=== PATIENT | female | born 2005 | race Caucasian/White ===

== ENCOUNTER 2024-02-08 15:07 | Outpatient (OUT) | payer OTHER, SELFPAY ==
--- NOTE | 2024-02-08 15:21 | XR_ITS ---
The [address] [address] Patient Name: VIRGILIO REDDY MRN: [id number] date: 2005 Sex: F Assigned Patient Location: [facility] Current Patient Location: [facility] Accession/Order Number: [id number] Exam Date: 02/08/2024 15:28 Report Date: 02/08/2024 15:43 At the request of: TERA HERNANDEZ Procedure: XR shoulder RT min 2V PROCEDURE: XR shoulder RT min 2V HISTORY: Right Shoulder Pain, Limited Range Of Motion ; recent fall COMPARISON: None. FINDINGS: BONES:No fracture, acute abnormality, or significant arthropathy. SOFT TISSUES:No visible soft tissue swelling. EFFUSION:None visible. OTHER: Negative. XR/XR shoulder RT min 2V IMPRESSION: 1. Normal examination. Electronically authenticated by: SALLY BUSBY Date: 02/08/2024 15:43
== END 2024-02-08 15:08 | disposition home or self-care (01) ==
PROVIDERS: Visit Provider Nurse Practitioner Family
DX: M25.511 Pain in right shoulder (principal)
CPT/HCPCS: 73030

== ENCOUNTER 2024-03-05 08:19 | Outpatient (OUT) | payer OTHER, SELFPAY ==
--- NOTE | 2024-03-05 08:21 | MR_ITS ---
The [address] [address] Patient Name: VIRGILIO REDDY MRN: [id number] date: 2005 Sex: F Assigned Patient Location: MRI Current Patient Location: MRI Accession/Order Number: [id number] Exam Date: 03/05/2024 08:47 Report Date: 03/05/2024 14:53 At the request of: TERA HERNANDEZ Procedure: MR shoulder RT wo con EXAM: MR shoulder RT wo con HISTORY: Right Shoulder Injury, Right Shoulder Pain COMPARISON: 02/08/2024 TECHNIQUE: MRI images obtained with multiple sequences. MRI of the right shoulder without contrast. Sequences obtained by standard department protocol. FINDINGS: Normal alignment of the acromioclavicular joint. Undersurface of the acromion process is gently curved. Subacromial subdeltoid bursal fluid, consistent with bursitis. Rotator cuff is intact. No full-thickness rotator cuff tear. Supraspinatus, infraspinatus, teres minor and subscapularis tendons are intact. Muscle bulk of the rotator cuff is preserved. No labral detachment. No full-thickness chondral loss of the glenohumeral joint. No acute fractures. No right axillary adenopathy. MR/MR shoulder RT wo con IMPRESSION: 1. No full-thickness rotator cuff tear. Rotator cuff is intact. 2. Subacromial subdeltoid bursal fluid, consistent with bursitis. 3. No right axillary adenopathy. Electronically authenticated by: CARLOS ENRIQUE LAI Date: 03/05/2024 14:53
--- OUTSIDE RECORDS SUMMARY | 2024-03-05 08:32 | XMS_ITS | CCD ---
Author Organization [facility] Care Team Providers Care Manager Systems Name Role Phone ANABELA, SHANTHI Attending Unavailable ANABELA, SHANTHI Admitting Unavailable ANABELA, SHANTHI Attending Unavailable ANABELA, SHANTHI Attending Unavailable ANABELA, SHANTHI Attending Unavailable ANABELA, SHANTHI Attending Unavailable Urgent [facility] Attending Unavailable Britta EVANS MD, [facility] Kyara vailable Britta EVANS MD, [facility] Kyara vailable Guy SCIENTIFIC RECRUITER[employer]WIDE [employer] NETWORK ADMINISTRATOR, Shanna George Attending Unava ilable Allergies Allergy Classification Reported Allergen(s) Allergy Type Date of Onset Reaction(s) Facility (1 source) No Known Medication Allergies; Translations: [No Known Medication Allergies] Propensity to adverse reactions to drug (disorder) [facility] Repository Problems Problem Classification Problem Date Documented Date Episodic/Chronic Other non-traumatic joint disorders (2 sources) Other instability, left shoulder; Translations: [Other instability, left shoulder] Onset: 01-25-2023 Episodic Residual codes; unclassified (2 sources) Other specified postprocedural states; Translations: [Other specified postprocedural states] Onset: 03-09-2023 Episodic Results Test Name Value Interpretation Reference Range [facility] Urgent Care Office/Clinic No glaileo 11-27-2023 Urgent Care Office/Clinic Note History of Present Illness 18 year old female presents to the urgent care today for abdominal pain. Patient with known history of ovarian cysts which were diagnosed 2 years ago. Denies any F/U with BUILDING OFFICIAL. States that symptoms today are similar to what she experienced 2 years ago. rates pain 5/10. Has not used any OTC pain medication. Also with long standing history of constipation. States that she did have a colonoscopy scheduled in the past, but had to cancel due to unforeseen circumstances. States that last bowel movement was 3-4 days ago. Denies any fever, chest pain. SOB, vomiting or changes in menstrual cycle or urinary symptoms. Complains of nausea after she eats. Review of Systems ROS: General: No fever, chills, body aches or fatigue. No unexplained weight loss or change in appetite. Cardiovascular: No chest pain, palpitations, or syncope. Pulmonary: No shortness of breath, wheezing, cough. GI: No nausea, vomiting or diarrhea. No abdominal pain. : No dysuria, hematuria, incontinence, frequency or urgency. Skin: Denies rashes or other acute changes. Physical Exam General: Well-developed, in no acute distress. Neuro: Alert and oriented. CV: Regular rate and rhythm. No murmurs, gallops, or rubs. No carotid bruit bilaterally. No lower extremity edema. Lungs: Clear to auscultation bilaterally. No wheezes, crackles, or rhonchi. Good air exchange bilaterally. Abdomen: Non-distended. Bowel sounds heard in all 4 quadrants. Soft, non-tender palpation. No organomegaly or masses noted. No guarding. No CVA tenderness. Skin: Warm, dry, intact. No rashes, lesions, or open wounds. Additional Vitals No qualifying data available. Assessment/Plan 1. Ovarian cyst Tylenol/Motrin OTC as needed for pain F/U with [facility]ILDING [facility] Ordered: Discharge Patient 2. Constipation in female Drink at least 8 glasses of non-caffeinated nonalcoholic beverages per day. Follow diet as instructed, written handout given. Recommend taking over the counter MiraLax - Follow dosing instructions on package, take with large glass of water at bedtime daily until having daily bowel movements, then decrease to every other day, every 3rd day, to once a week. Then take as needed to keep bowels regular. May take over the counter Colace 100 mg twice a day to soften stools. May decrease to once daily or as needed when bowels are moving daily and are softly formed. Follow-up with PCP in 3-5 days if no improvement. Go to the emergency department if symptoms become worse or for any concern deemed emergent. Ordered: Discharge Patient Medical Decision Making Chronic conditions NOT treated during this visit that affected my overall medical decision making: [] Treatment plans discussed but not opted for at this time: [] Prescribed medication that requires intensive monitoring for toxicity: [] I have reviewed the patient?s medication list for medication interactions/contrain dications and/or for upcoming procedures: [yes] Time Spent with the Patient I have personally spent [21] minutes on this date, directly related to today's patient visit, including pre and post visit work, for this date of service. Time listed does not include time spent on separately billable services. Physician Comments Assessment and plan reviewed with patient and agrees with treatment plan. Problem List/Past Medical History Ongoing No chronic problems Historical No qualifying data Procedure/Surgical History REMOVAL OF TONSILS Medications No active medications Allergies No Known Allergies No Known Medication Allergies Social History Tobacco Never (less than 100 in lifetime) Use:. Family History Family history is negative Electronically signed by Guy CANO Shanna George 11/27/23 17:35 EDT Normal [facility] Urgent Care Office/Clinic No galileo 09-17-2023 Urgent Care Office/Clinic Note Chief Complaint pt states she has had a cough that has lead to cheset tightness for one week, has started tasting blood in cough. History of Present Illness Patient is 18-year-old female here with her mother for evaluation of dry cough and chest pain. Patient reports she has had a cough for 1 week. She denies fever, body aches, or chills. She reports chest pain has been constant and will occasionally worsen. She is able to identify a specific aggravating factor besides coughing will be 1 factor that makes it worse. She has not taken medication for pain. She is currently taking DayQuil and NyQuil for her cough. She denies shortness of breath or wheezing. She denies GI symptoms, nasal congestion, rhinorrhea, ear pain, throat pain, headache. She denies any known sick contacts. Review of Systems See HPI Physical Exam Vitals & Measurements T: 36.7 ?C (Oral) HR: 70 (Peripheral) RR: 16 BP: 118/78 SpO2: 98 HT: 165 cm WT: 60 kg WT: 60 kg (Dosing) BMI: 22.04 General: Well-developed, in no acute distress. Neuro: Alert and oriented. Gait is steady. Speech is clear and appropriate. Eyes: PERRL. Conjunctiva clear without erythema or drainage. Nose: Bilateral nares patent with thick green rhinorrhea and right nares. Ears: Canals visualized without any erythema, edema, or discharge. TM's visible and intact, pearly hall. Good light reflex. Pharynx: Posterior oropharynx moist, pink without erythema, edema, or exudate. Mucous membranes moist. Sinuses: No tenderness to palpation of the frontal and maxillary sinuses. Neck: Trachea midline. No lymphadenopathy. CV: Regular rate and rhythm. No murmurs, gallops, or rubs. Lungs: Clear to auscultation bilaterally. No wheezes, crackles, or rhonchi. Good air exchange bilaterally. Additional Vitals BP Position/Location: Sitting Assessment/Plan 1. Viral URI with cough Take Tessalon Perles as prescribed. Recommend using ibuprofen 600 to 800 mg every 6-8 hours consistently for costochondritis pain. May alternate Tylenol. Increase fluid intake. Recommend using warm fluids with honey to help soothe the cough. Use cool-mist humidifier by bed at night to decrease any nasal congestion and moisturize nasal passages and throat. Follow-up with family doctor in the next lab to 7 days if no improvement in symptoms. Go to the ER for new or worsening symptoms. Ordered: benzonatate, 1 caps, Oral, TID, PRN, X 7 days, # 21 caps, 0 Refill(s), 09/24/23 13:31:00 EDT, Pharmacy: [id number] 2. Costochondritis See #1 Ordered: benzonatate, 1 caps, Oral, TID, PRN, X 7 days, # 21 caps, 0 Refill(s), 09/24/23 13:31:00 EDT, Pharmacy: [id number] Medical Decision Making Patient is well and nontoxic-appearing upon evaluation. Vital signs are stable. Reviewed assessment and plan of care with patient. Patient verbalized understanding and agreed with plan. No further questions or concerns upon discharge. Chronic conditions NOT treated during this visit that affected my overall medical decision making: [] Treatment plans discussed but not opted for at this time: [] Prescribed medication that requires intensive monitoring for toxicity: [] I have reviewed the patient?s medication list for medication interactions/contrain dications and/or for upcoming procedures: [yes or no] Time Spent with the Patient I have personally spent [15] minutes on this date, directly related to today's patient visit, including pre and post visit work, for this date of service. Time listed does not include time spent on separately billable services. Problem List/Past Medical History Ongoing No chronic problems Historical No qualifying data Procedure/Surgical History REMOVAL OF TONSILS Medications benzonatate 100 mg oral capsule, 100 mg= 1 caps, Oral, TID, PRN Allergies No Known Allergies No Known Medication Allergies Social History Tobacco Never (less than 100 in lifetime) Use:. Family History Family history is negative Electronically signed by Starla Roy 09/17/23 13:35 EDT [facility] Office Visiton 05-29-2023 Follow-up visit [id number] Zeynep Avery 2005 F Date Provider Department [place] 05/29/2023 SHANTHI MORFIN MP No family history on file Level of Service:62304 NE POSTOP FOLLOW UP VISIT RELATED TO ORIGINAL PX Reason for Visit and Comments: Pain [136] Follow-up [176572] [facility] 36on 05-04-2023 36 Physical therapist wants to know is theres any protocol they need to follow? If not a verbal is fine to call back the Theraspist. If theres any restrictions/protocol the Would like them to follow please fax a form to fax numer [phone] dina Sharp Normal [facility] Follow-Upon 04-17-2023 Follow-Up [id number] Zeynep Avery 2005 F Date Provider Department [place] 04/17/2023 SHANTHI MORFIN MP No family history on file Level of Service:39605 NE POSTOP FOLLOW UP VISIT RELATED TO ORIGINAL PX Reason for Visit and Comments: Pain [136] [facility] Office Visiton 03-20-2023 Follow-up visit [id number] Zeynep Avery 2005 F [facility] Provider Department [place] 03/20/2023 SHANTHI MORFIN MP ORTHO MPORTHO No family history on file Level of Service:69250 NE POSTOP FOLLOW UP VISIT RELATED TO ORIGINAL PX Reason for Visit and Comments: Pain [136] - 1st PO Post-op [483] - 1st PO Normal [facility] OPNOTEon 03-09-2023 OPNOTE SHOULDER ARTHROSCOPY WITH REVISION OF BANKART REPAIR (L), CAPSULORRHAPHY, WITH REMOVAL OF DEEP SUTURE (L) Operative Note Date: 03/09/2023 Location: [facility] OR Name: Zeynep Avery, : 2005, Diagnosis Pre-op Diagnosis * 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 GRYPHON P BR ANCHOR W/ DYNACORD Explanted Mcgrath DYNACORD,GRYPHON,BLUE - [id number] Explanted Mcgrath ANCHOR,DUAL STRAND,LUPINE - [id number] Implanted Staff: Laboratory Administrative Director: Violet Merritt RN Scrub Person: Dyan Berg, MEMORANDUM STATEMENT CLERK Indications: Zeynep Avery is an 17 y.o. 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 Procedure Details: The patient was seen in the preoperative area. The risks, benefits, complications, treatment options, non-operative alternatives, expected recovery and outcomes were discussed with the patient. The possibilities of reaction to medication, pulmonary aspiration, injury to surrounding structures, bleeding, recurrent infection, the need for additional procedures, failure to diagnose a condition, and creating a complication requiring transfusion or operation were discussed with the patient. The patient concurred with the proposed plan, giving informed consent. The site of surgery was properly noted/marked if necessary per policy. The patient has been actively warmed in preoperative area. Preoperative antibiotics have been ordered and given within 1 hours of incision. Venous thrombosis prophylaxis have been ordered including bilateral sequential compression devices Findings: After confirmation and marking of the left shoulder in the preoperative holding area, the patient was brought back to the operating suite and placed in the supine position. All pressure points were adequately padded. General endotracheal anesthesia was smoothly induced. Preoperative antibiotics were administered. After observation of the surgical timeout procedure using 2 separate patient identifiers, we began with the case. We first preemptively anesthetized the proposed incisions with 3 cc 1% lidocaine with epinephrine. We then created our standard arthroscopy portals began with a diagnostic arthroscopy. We first inspected the glenohumeral joint. The superior labrum was intact. Long head of biceps tendon was intact. Rotator cuff was intact. There was however a failed Bankart repair with disruption of the capsulolabral complex. Articular cartilage was not intact. There was a 4mm cavitary defect of the anteroinferior glenoid where the previous anchor had pulled out. The anterior labrum was not intact. The posterior labrum was intact, but there was inflammation around the suture knots here. We removed the synovitis and suture knots. We first tried to repair the failed Bankart using Billy anchors above and below the cavitary defect. However, they could not gain purchase due to the compromised bone. We then instead used a larger Lupine anchor into the defect site where it gained good purchase. This was double loaded with Orthocord, which was passed around the torn labrum and into the torn capsule. When tied down, this effected both a Bankart repair and a capsulorrhaphy. At this point all instruments were removed and the shoulder was drained of fluid. The portal incisions were closed using simple nylon sutures. A sterile dry dressing was applied. A Polar Care unit was applied for postoperative pain control. A sling with abduction pillow was applied as well. Patient was then awaken extubated and brought back to the PACU in stable condition I was present scrubbed and actively participated in all osuna portions of the surgery Complications: None; patient tolerated the procedure well. Disposition: PACU - hemodynamically stable. Condition: stable Shanthi Newton Normal [facility] POCT GLUCOSE METER UNSOLICIT ED RESULTSon 03-09-2023 Glucose [Mass/Vol] 92 mg/dL Normal 70-105 [facility] Comment on above: Order Comment: Waive d Testing in the ED is performed under the ED CLIA certificate #[id number]. Result Comment: aaron ng12 Performed By: #### L [id number] ####[facility] (JANUSZ)[address] [place] [address] HPon 03-08-2023 HP History Of Present Illness Zeynep Avery is a 17 y.o. female presenting with L shoulder instability. Past Medical History She has a past medical history of Adverse effect of anesthesia, Constipation, and Instability of left shoulder joint. Surgical History She has a past surgical history that includes Shoulder surgery and Tonsillectomy. Social History She reports that she has never smoked. She has never used smokeless tobacco. She reports that she does not currently use alcohol. She reports that she does not currently use drugs. Family History No family history on file. Allergies Patient has no known allergies. Medications No medications prior to admission. Review of Systems Last Recorded Vitals Visit Vitals Smoking Status Never Physical Exam Relevant Lab Results No results found for: NA, K, CL, CO2, BUN, CREATININE, GLUCOSE, CALCIUM, ANIONGAP, EGFR, BCR L shoulder instability Relevant Imaging Results No image results found. Assessment/Plan Principal Problem: Instability of left shoulder joint L shoulder capsulorrhaphy Normal [facility] [id number] 03-02-2023 [id number] Nothing to Eat or Drink, including Candy, Gum, Mints, and Tobacco after Midnight the night before surgery. Take LINZESS with a sip of water the day of surgery. Hold Vitamins, Supplements, and NSAIDS for 1 week prior to surgery. Hold all other meds the morning of surgery. IF YOU ARE GOING HOME AFTER YOUR SURGERY OR PROCEDURE, FOR YOUR SAFETY, YOUR SURGERY WILL BE CANCELLED IF BOTH OF THE FOLLOWING ARE NOT AVAILABLE: An adult sales driver over the age of 18, that can receive information about your care after surgery, and drive you home. A responsible adult to stay with you for 24 hours in case of an emergency. Can be same as above. The highest risk of complications is within the first 24 hours after sedation/anesthesia. Nothing to eat or drink after midnight the night before surgery. This includes gum, candy, mints, and lozenges. No alcohol, marijuana, or tobacco products including vaping for 24 hours. Please brush your teeth; don't swallow the toothpaste or water. If you use dentures, wear them but do not use paste. Please leave any other removable dental hardware at home. Do not put in contact lenses. Do not wear perfume, make-up, nail nicaraguan, or lotions on the day of your surgery or procedure. Follow skin-prep/wipe instructions as below if required. Bring with you: *Insurance card *Photo ID *Medication list *Co-pay for visit/prescriptions If applicable: *Rescue inhalers *Green bracelet from lab *CPAP or BiPAP machine, if staying overnight *Any braces, splints, or equipment ordered preoperatively *Remote controls for implanted devices Leave at home: *Purse/Wallet/Juan- unless needed for co-pay *Cell phone (can leave with family/friend or place in locker if needed) *Jewelry (including piercings and wedding bands) *If not possible, ask the person who is waiting with you to keep them Children under the age of 12 will not be allowed into patient care areas. We will call you between 3pm and 4pm the day before your surgery to give you an arrival time. If you do not receive this call, have any questions, or need to make any changes, please call [phone]. Notify your surgeon if you develop any illness such as a cold, cough, fever, sore throat or vomiting between now and your surgery. Thank you for entrusting us with your care. [facility] Surgical Services Team [facility] 36on 02-23-2023 36 Spoke with pt about getting her in sooner for surgery [facility] Office Visiton 01-24-2023 Follow-up visit [id number] Zeynep Avery 2005 F Date Provider Department Center 01/24/2023 SHANTHI MORFIN MP ORTHO MPORTHO No family history on file Level of Service:92292 NE OFFICE/OUTPATIENT NEW MODERATE MDM 45-59 MINUTES (57,GC) Reason for Visit and Comments: Pain [136] [facility] Encounters Encounter Date Encounter Type Care Provider Facility Start: 11-27-2023 End: 11-27-2023 ambulatory Epifanio Callejas II, MD Facility:[facility] Start: 09-17-2023 End: 09-17-2023 ambulatory [facility] Facility:[facility] Start: 05-29-2023 ambulatory [facility] Start: 04-17-2023 End: 04-17-2023 ambulatory [facility] Start: 03-20-2023 End: 03-20-2023 ambulatory [facility] Start: 03-09-2023 End: 03-09-2023 ambulatory [facility] Start: 03-09-2023 End: 03-09-2023 Encounter for preprocedural laboratory examination [facility] Start: 01-24-2023 End: 01-24-2023 ambulatory [facility] Start: 01-24-2023 End: 01-24-2023 Encounter for other preprocedural examination [facility] Payers Date Payer Category Payer Private Health Insurance 2021 Private Health Insurance [id number] 2005 Unknown [id number] 1977 Unknown [id number] 1978 Unknown [id number] Clinical Notes 01-24-2023 to 11-27-2023 Note Date & Type Note Facility 11-27-2023 Note Patient Education Ma terials Name: Zeynep Avery Current Date: 11/27/2023 17:23:23 [place] : 2005 The following sheet(s) are the Patient Education Leaflets for Zeynep Avery Ambulatory Constipation (Adult) Constipation means that you have bowel movements that are less frequent than usual. Stools often become very hard and difficult to pass. Constipation is very common. At some point in life, it affects almost everyone. Since everyone's bowel habits are different, what is constipation to one person may not be to another. Your healthcare provider may do tests to diagnose constipation. It depends on what he or she finds when evaluating you. Symptoms of constipation include: ? Abdominal pain ? Bloating ? Vomiting ? Painful bowel movements ? Itching, swelling, bleeding, or pain around the anus Causes Constipation can have many causes. These include: ? Diet low in fiber ? Too much dairy ? Not drinking enough liquids ? Lack of exercise or physical activity (especially true for older adults) ? Changes in lifestyle or daily routine, including , aging, work, and travel ? Frequent use or misuse of laxatives ? Ignoring the urge to have a bowel movement or delaying it until later ? Medicines, such as certain prescription pain medicines, iron supplements, antacids, certain antidepressants, and calcium supplements ? Diseases like irritable bowel syndrome, bowel obstructions, stroke, diabetes, thyroid disease, Parkinson disease, hemorrhoids, and colon cancer Complications Potential complications of constipation can include: ? Hemorrhoids ? Rectal bleeding from hemorrhoids or anal fissures (skin tears) ? Hernias ? Dependency on laxatives ? Chronic constipation ? Fecal impaction, a severe form of constipation in which a large amount of hard stool is in your rectum that you can't pass ? Bowel obstruction or perforation Home care All treatment should be done after talking with your healthcare provider. This is especially true if you have another medical problems, are taking prescription medicines, or are an older adult. Treatment most often involves lifestyle changes. You may also need medicines. Your healthcare provider will tell you which will work best for you. Follow the advice below to help avoid this problem in the future. Lifestyle changes These lifestyle changes can help prevent constipation: ? Diet. Eat a high-fiber diet, with fresh fruit and vegetables, and reduce dairy intake, meats, and processed foods ? Fluids. It's important to get enough fluids each day. Drink plenty of water when you eat more fiber. If you are on diet that limits the amount of fluid you can have, talk about this with your healthcare provider. ? Regular exercise. Check with your healthcare provider first. Medicines Take any medicines as directed. Some laxatives are safe to use only every now and then. Others can be taken on a regular basis. While laxatives don't cause bowel dependence, they are treating the symptoms. So your constipation may return if you don't make other changes. Talk with your healthcare provider or pharmacist if you have questions. Prescription pain medicines can cause constipation. If you are taking this kind of medicine, ask your healthcare provider if you should also take a stool softener. Medicines you may take to treat constipation include: ? Fiber supplements ? Stool softeners ? Laxatives ? Enemas ? Rectal suppositories Follow-up care Follow up with your healthcare provider if symptoms don't get better in the next few days. You may need to have more tests or see a specialist. Call 911 Call 911 if any of these occur: ? Trouble breathing ? Stiff, rigid abdomen that is severely painful to touch ? Confusion ? Fainting or loss of consciousness ? Rapid heart rate ? Chest pain When to seek medical advice Call your healthcare provider right away if any of these occur: ? Fever of 100.4?F (38?C) or higher, or as directed by your healthcare provider ? Failure to resume normal bowel movements ? Pain in your abdomen or back gets worse ? Nausea or vomiting ? Swelling in your abdomen ? Blood in the stool ? Black, tarry stool ? Involuntary weight loss ? Weakness ? [id number] [employer]. [address] [place] [address]. All rights reserved. This information is not intended as a substitute for professional medical care. Always follow your healthcare professional's instructions. Drink at least 8 glasses of non-caffeinated nonalcoholic beverages per day. Follow diet as instructed, written handout given. Recommend taking over the counter MiraLax - Follow dosing instructions on package, take with large glass of water at bedtime daily until having daily bowel movements, then decrease to every other day, every 3rd day, to once a week. Then take as needed to keep bowels regular (more content not included)... [facility] 09-17-2023 Note Patient Education Ma terials Name: Zeynep Avery Current Date: 09/17/2023 13:39:48 [place] : 2005 The following sheet(s) are the Patient Education Leaflets for Zeynep Avery Ambulatory Chest Wall Pain: Costochondritis The chest pain that you have had today is caused by costochondritis. This condition is caused by an inflammation of the cartilage joining your ribs to your breastbone. It's not caused by heart or lung problems. Your healthcare team has made sure that the chest pain you feel is not from a life threatening cause of chest pain such as heart attack, collapsed lung, blood clot in the lung, tear in the aorta, or esophageal rupture. The inflammation may have been brought on by a blow to the chest, lifting heavy objects, intense exercise, or an illness that made you cough and sneeze a lot. It often occurs during times of emotional stress. It can be painful, but it's not dangerous. It usually goes away in 1 to 2 weeks. But it may happen again. Rarely, a more serious condition may cause symptoms similar to costochondritis. That?s why it?s important to watch for the warning signs listed below. Home care Follow these guidelines when caring for yourself at home: ? If you feel that emotional stress is a cause of your condition, try to figure out the sources of that stress. It may not be obvious. Learn ways to deal with the stress in your life. This can include regular exercise, muscle relaxation, meditation, or simply taking time out for yourself. ? You may use acetaminophen, ibuprofen, or naproxen to control pain, unless another pain medicine was prescribed. If you have liver or kidney disease or ever had a stomach ulcer, talk with your healthcare provider before using these medicines. ? You can also help ease pain by using a hot, wet compress or heating pad. Use this with or without a medicated skin cream that helps relieves pain. ? Do stretching exercise as advised by your provider. Typically rest is beneficial for the first few days. Avoid strenuous activity that worsens the pain. ? Take any prescribed medicines as directed. Follow-up care Follow up with your healthcare provider, or as advised. When to seek medical advice Call your healthcare provider right away if any of these occur: ? A change in the type of pain. Call if it feels different, becomes more serious, lasts longer, or spreads into your shoulder, arm, neck, jaw, or back. ? Shortness of breath or pain gets worse when you breathe ? Weakness, dizziness, or fainting ? Cough with dark-colored sputum (phlegm) or blood ? Abdominal pain ? Dark red or black stools ? Fever of 100.4?F (38?C) or higher, or as directed by your healthcare provider ? [id number] [facility]. [address] [place] [address], [place] [address]. All rights reserved. This information is not intended as a substitute for professional medical care. Always follow your healthcare professional's instructions. 1. Viral URI with cough Take Tessalon Perles as prescribed. Recommend using ibuprofen 600 to 800 mg every 6-8 hours consistently for costochondritis pain. May alternate Tylenol. Increase fluid intake. Recommend using warm fluids with honey to help soothe the cough. Use cool-mist humidifier by bed at night to decrease any nasal congestion and moisturize nasal passages and throat. Follow-up with family doctor in the next lab to 7 days if no improvement in symptoms. Go to the ER for new or worsening symptoms. Ordered: benzonatate, 1 caps, Oral, TID, PRN, X 7 days, # 21 caps, 0 Refill(s), 09/24/23 13:31:00 EDT, Pharmacy: [id number] 2. Costochondritis See #1 Ordered: benzonatate, 1 caps, Oral, TID, PRN, X 7 days, # 21 caps, 0 Refill(s), 09/24/23 13:31:00 EDT, Pharmacy: [id number] Viral Upper Respiratory Illness (Adult) You have a viral upper respiratory illness (URI), which is another term for the common cold. This illness is contagious during the first few days. It is spread through the air by coughing and sneezing. It may also be spread by direct contact (touching the sick person and then touching your own eyes, nose, or mouth). Frequent handwashing will decrease risk of spread. Most viral illnesses go away within 7 to 10 days with rest and simple home remedies. Sometimes the illness may last for several weeks. Antibiotics will not kill a virus, and they are generally not prescribed for this condition. Home care ?If symptoms are severe, rest at home for the first 2 to 3 days. When you resume activity, don't let yourself get too tired. ?Don't smoke. If you need help stopping, talk with your healthcare provider. ?Avoid being exposed to cigarette smoke (yours or others?). ?You may use acetaminophen or ibuprofen to control pain and fever, unless another medicine was prescribed.?If you have chronic liver or kidney disease, have ever had a stomac (more content not included)... [facility] 05-29-2023 Note Orthopedic Surgery 03/09/2023 Shoulder Arthroscopy With Revision Of Bankart Repair - Left and Capsulorrhaphy, With Removal Of Deep Suture - Left 05/29/2023 Mykel returns today for follow-up. She is doing great. Her exam shows full range of motion and full strength in her bilateral shoulders. She has no pain. At this point no further treatment is indicated. Follow-up as needed. Activities as tolerated with no restrictions 04/17/2023 Doing well, no pain. She has a little bit of stiffness. I will order physical therapy and asked her to come back in 6 weeks for recheck Physical Exam: Forward flexion 180, external rotation 90, internal rotation 90. Strength is 5 out of 5 Assessment: Zeynep Avery is a 17 y.o. year old female status post left shoulder arthroscopy with revision Bankart repair, capsulorrhaphy, and removal of previous labral sutures done on 03/09/2023 Plan: Follow-up as needed [facility] 04-17-2023 Note Orthopedic Surgery 03/09/2023 Shoulder Arthroscopy With Revision Of Bankart Repair - Left and Capsulorrhaphy, With Removal Of Deep Suture - Left 04/17/2023 Doing well, no pain. She has a little bit of stiffness. I will order physical therapy and asked her to come back in 6 weeks for recheck Physical Exam: Forward flexion is to 160 out of the possible 180 Assessment: Zeynep Avery is a 17 y.o. year old female status post left shoulder arthroscopy with revision Bankart repair, capsulorrhaphy, and removal of previous labral sutures done on 03/09/2023 Plan: Plan therapy and follow-up in 6 weeks time. She can DC the sling at this point [facility] 03-20-2023 Note ------ Attestation signed by Shanthi Newton MD at 03/20/2023 2:42 PM I personally saw and examined the patient on the same date of service as resident/fellow . I discussed the findings and therapeutic plan with the resident/fellow . I agree with the documentation, except for any edits/updates below. Teaching Physician's Revisions: No revisions ------ Orthopedic Surgery 03/09/2023 Shoulder Arthroscopy With Revision Of Bankart Repair - Left and Capsulorrhaphy, With Removal Of Deep Suture - Left Zeynep Avery comes in for a post-operative visit after having a left shoulder arthroscopy with revision Bankart repair, capsulorrhaphy, and removal of previous labral sutures done on 03/09/2023. Today she is doing well and has no unexpected complaints. Physical Exam: The incision site is healing well. There is no erythema, drainage or signs of infection. Tenderness is mild and localized to the surgical site. Sensation is present present to light touch. Range of motion is appropriate for this time. Assessment: Zeynep Avery is a 17 y.o. year old female status post left shoulder arthroscopy with revision Bankart repair, capsulorrhaphy, and removal of previous labral sutures done on 03/09/2023 Plan: -Continue with current restrictions -fu 4 wks. Will initiate PT at that time Jackson Sloan MD Orthopedic Surgery, PGY-4 [facility] Pager: [phone] 03/20/23 9:35 AM By using the attestations below, the signing clinician agrees that I have read and verify that the documentation has been personally reviewed by me and ensure that the documentation accurately reflects the encounter. Office Visit Attestation GC: I personally saw this patient on the day of the encounter, performed the osuna portion(s) of the service and participated in the management and confirm the resident's documentation. Please note there may be an additional personal documentation from me. This note was created with the assistance of a speech-recognition program. While intending to generate a document that accurately reflects the content of the encounter, no guarantee can be provided that every mistake has been identified and corrected by editing. [facility] 03-10-2023 Note Spoke with patient r egarding recent procedure with Dr. Newton (03/09) and patient stated that she is doing good and denies having any questions or concerns at this time. Patient states that she has been taking the aspirin as prescribed and denies any unusual drainage, major swelling, chest pain, shortness of breath, and/or fever. Patient was also able to confirm her post-operative appointment with Dr. Newton on 03/20. I provided my contact information and encouraged the patient to call if any questions/concerns arise in the meantime. 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]) Surgeons: Shanthi Newton MD Responsible Provider: Michelle Carranza MD Anesthesia Type: general, regional ASA Status: 1 Anesthesia Type: general, regional Vitals Value Taken Time BP 124/80 03/09/23 1045 Temp 03/09/23 1154 Pulse 95 03/09/23 1045 Resp 18 03/09/23 1045 SpO2 100 % 03/09/23 1045 Anesthesia Post Evaluation Patient location during evaluation: PACU Patient participation: complete - patient participated Level of consciousness: awake Pain management: adequate Cardiovascular status: acceptable Respiratory status: acceptable Hydration status: acceptable Comments: Patient was evaluated for PACU discharge prior to leaving. Note was inputted later. Patient is hemodynamically stable and is able to be discharged from PACU per anesthesia protocol. No notable events documented. 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]) Surgeons: Shanthi Newton MD Responsible Provider: Michelle Carranza MD Anesthesia Type: general, regional ASA Status: 1 Anesthesia Post [facility] Patient Monitor: direct observation Transport: uneventful Patient condition is: stable [facility] 03-09-2023 Note Airway Date/Time: 03/09/2023 9:02 AM Urgency: elective General Information and Staff Patient location during procedure: OR Anesthesiologist: Michelle Carranza MD Resident/DRIVER'S LICENSE EXAMINER/BREN: BREN Mahmood Performed: resident/DRIVER'S LICENSE EXAMINER/BREN Indications and Patient Condition Indications for airway management: anesthesia Spontaneous Ventilation: absent Sedation level: deep Preoxygenated: yes Mask difficulty assessment: 1 - vent by mask Final Airway Details Final airway type: endotracheal airway Successful airway: ETT Cuffed: yes Successful intubation technique: video laryngoscopy Facilitating devices/methods: intubating stylet Endotracheal tube insertion site: oral Blade: Bright Blade size: #3 ETT size (mm): 7.0 Cormack-Lehane Classification: grade I - full view of glottis Placement verified by: chest auscultation and capnometry Measured from: lips ETT to lips (cm): 21 Number of attempts at approach: 1 Number of other approaches attempted: 0 [facility] 03-09-2023 Note Peripheral Block Patient location during procedure: pre-op Start time: 03/09/2023 8:39 AM End time: 03/09/2023 8:54 AM Reason for block: at surgeon's request and post-op pain management Staffing Performed: resident/DRIVER'S LICENSE EXAMINER/BREN Anesthesiologist: Michelle Carranza MD Resident/DRIVER'S LICENSE EXAMINER: Nick Rea DO Preanesthetic Checklist Completed: patient identified, IV checked, site marked, risks and benefits discussed, surgical consent, monitors and equipment checked, pre-op evaluation and timeout performed Peripheral Block Patient position: supine Prep: ChloraPrep Patient monitoring: continuous pulse ox Block type: interscalene brachial plexus Laterality: left Injection technique: single-shot Guidance: ultrasound guided Needle Needle type: short-bevel Needle gauge: 22 G Needle length: 2 in Needle localization: ultrasound guidance Medications Administered fentaNYL (SUBLIMAZE) IV - intravenous 50 mcg - 03/09/2023 8:39:00 AM midazolam (VERSED) IV - intravenous 2 mg - 03/09/2023 8:39:00 AM bupivacaine HCl (Marcaine) 0.5 % (5 mg/mL) injection - injection 100 mg - 03/09/2023 8:39:00 AM Assessment Injection assessment: negative aspiration for heme, no paresthesia on injection, incremental injection and local visualized surrounding nerve on ultrasound Heart rate change: no Slow fractionated injection: yes [facility] 03-09-2023 Note Patient: Zeynep lozano Procedure Information Date/Time: 03/09/23 0900 Procedures: SHOULDER ARTHROSCOPY WITH (Left: Shoulder) THERMAL CAPSULORRHAPHY (Left: Shoulder) Location: [facility] OR [address] [place] [address] OR Surgeons: Shanthi Newton MD Relevant Problems Anesthesia (-) History of anesthesia complications Cardio Activity: >10 METs No Known Allergies Clinical information reviewed: Tobacco Allergies Meds Med Hx Surg Hx OB Status Fam Hx Soc Hx Physical Exam Airway Mallampati: II TM distance: >3 FB Neck ROM: full Cardiovascular Rhythm: regular Rate: normal Dental - normal exam Pulmonary - normal exam Abdominal (-) obese Anesthesia Plan ASA 1 general and regional (GETA with standard ASA monitors and pre-operative interscalene brachial plexus block) The patient is not a current smoker. Patient was previously instructed to abstain from smoking on day of procedure. Patient did not smoke on day of procedure. Medical reason for not educating patient about risks of obstructive sleep apnea. intravenous induction Postoperative administration of opioids is intended. Trial extubation is planned. Anesthetic plan and risks discussed with patient and mother. Use of blood products discussed with patient and mother who consented to blood products. Plan discussed with attending. Additional Equipment Requests [facility] 01-24-2023 Note Chief Complaint: left shoulder pain for 2 years. HPI Zeynep Avery is a 17 y.o. female who complains of left shoulder instability. Two years ago patient underwent a labrum repair however, still reports her shoulder popping out. MRI from Dr. Tran showed widening of the capsule which may be causing the shoulder to dislocate. Patient was informed and given consent for left shoulder capsulorrhaphy. Attending note: I looked at Zoltan's surgery photos from [facility]. These show a nice looking anterior labral repair by Dr. Adrian Kimball, but significant capsular redundancy. I suspect this is why she can persistent instability symptoms. My recommendation would be for L shoulder capsulorrhaphy. She would like to proceed.I looked at Zoltan's surgery photos from [facility]. These show a nice looking anterior labral repair, but significant capsular redundancy. I suspect this is why she can persistent instability symptoms. My recommendation would be for L shoulder capsulorrhaphy. She would like to proceed. Social History Occupational History Not on file Tobacco Use Smoking status: Never Smokeless tobacco: Never Substance and Sexual Activity Alcohol use: Not on file Drug use: Not on file Sexual activity: Not on file History reviewed. No pertinent past medical history. There were no vitals filed for this visit. Review of systems: Constitutional: No fever or night sweats Musculoskeletal: left shoulder pain Neurological: tingling or numbness: no Neck pain: no Physical Exam: General: No acute distress Constitutional: Grossly well-appearing Mental status: Alert and oriented Respiratory: Non-labored breathing left Shoulder Exam Skin: No erythema, ecchymosis, or abrasions ROM- Forward Flexion: 180 degrees External Rotation Neutral: 90 degrees Scapular Motion: Dyskinetic No Impingement Signs- Neer test negative Chance test negative AC Joint: Tender negative Cross body negative Biceps: Tender in the groove negative Speeds negative SLAP: Deep pain with Ann's negative Strength- Supraspinatus 5/5 Infraspinatus 5/5 Subscapularis 5/5 Deltoid 5/5 Stability- Apprehension negative Relocation positive Load and Shift: Anterior stable Posterior stable Neurological exam: Sensation intact to light touch median, radial, ulnar, and axillary Vascular exam: Brisk capillary refill No diagnosis found. Plan: Discussed clinical and imaging findings with the patient. -schedule for left shoulder capsulorrhaphy Anjelica Simmons, M3 [facility] Summary Purpose Family History No Family History Records FoundNo Family History Records Found Advance Directives No Advanced Directives Records FoundNo Advanced Directives Records Found Additional Source Comments INFORMATION SOURCE (unrecogn ized section and content) DATE CREATED AUTHOR 06/03/2023 [facility] DATE CREATED AUTHOR AUTHOR'S ORGANIZ ATION 11/29/2023 [facility] FOR RECORDS PERTAINING TO PATIENTS WHO ARE OR HAVE BEEN ENROLLED IN A CHEMICAL DEPENDENCY/SUBSTANCEABUSE PROGRAM, SOME INFORMATION MAY BE OMITTED. This clinical summary was aggregated from multiple sources. Caution should be exercised in using it in the provision of clinical care. This summary normalizes information from multiple sources, and as a consequence, information in this document may materially change the coding, format and clinical context of patient data. In addition, data may be omitted in some cases. CLINICAL DECISIONS SHOULD BE BASED ON THE PRIMARY CLINICAL RECORDS. [email or web address] [facility]. provides no warranty or guarantee of the accuracy or completeness of information in this document.
== END 2024-03-05 08:20 | disposition home or self-care (01) ==
LOC: MRI 08:19
PROVIDERS: Visit Provider Nurse Practitioner Family
DX: M25.511 Pain in right shoulder (principal); M71.9 Bursopathy, unspecified
CPT/HCPCS: 73221